=== PATIENT | female | born 1975 | race Two or more races ===

== ENCOUNTER 2016-08-29 21:18 | Emergency (ER) | payer BC, OTHER ==
--- NOTE | ~2016-08-29 | CR63 ---
[facility] A Service of [facility] & [facility] RADIOLOGY TEXT RESULTS PATIENT: ISRAEL HALEY LOCATION: [facility] : 71 UNIT #: [id number] AGE: [address]: Oscar Lovell MD SEX: F ORDER DR: [id number] [facility] [address] [place], [place] [address] [id number] E MR#: [id number] Acc #: [id number] NAME: ISRAEL HALEY : 1975 SEX: F STUDY DATE/TIME: 08/29/2016 21:18 UNIT: [facility] ROOM: STUDY DESCRIPTION: CR Chest 2 View Attending Physician: Oscar Lovell M.D. Ordering Physician: Jesus Mclaughlin M.D. MEDICAL IMAGING REPORT This report is preliminary unless electronic signature is present EXAM PA and lateral chest HISTORY Chest pain and shortness of air for 6 days. FINDINGS PA and lateral examination of the chest upright shows a good expansion of the parenchyma with a normal distribution of the pulmonary vascularity. There is no indication of congestion, effusion, infiltrate, tumor, or nodular density. The pleural reflections and diaphragmatic contours are normal. The cardiac silhouette and mediastinal anatomy is within normal limits. IMPRESSION Normal chest. Dictated by... Aashish Israel M.D. THIS IS AN ELECTRONICALLY VERIFIED REPORT Aashish Israel M.D. at 08/30/2016 10:57 PM DFL/psc TD: 08/30/2016 01:40 JOB #: [id number] MEDICAL IMAGING REPORT Page 1 of 1 COPY
--- NOTE | ~2016-08-29 | EKG ---
PATIENT: ISRAEL HALEY UNIT #: [id number] Ventricular Rate: 85 BPM Atrial Rate: 85 BPM P-R Interval: 138 ms QRS Duration: 84 ms Q-T Interval: 362 ms QTC Calculation(Bezet): 430 ms P [place]: 44 degrees Calculated R [place]: -2 degrees Calculated T [place]: 8 degrees Diagnosis Line: Normal sinus rhythm Diagnosis Line: Moderate voltage criteria for LVH, may be normal Diagnosis Line: variant Diagnosis Line: Borderline ECG Diagnosis Line: Diagnosis Line: Confirmed by MIGUEL ÁNGEL RODRIGES MD ([id number]) on 08/29/2016 Diagnosis Line: 11:43:17 PM INTERPRETING MD: ANTELMO DEVINE
[2016-08-29 18:49] LABS: BASOPHIL% 0.4 % (0-2.5); EOSINOPHIL# 0.1 X10e3 (0-0.7); EOSINOPHIL% 1.4 % (0.0-7.0); HEMATOCRIT 41.5 % (35.0-45.0); HEMOGLOBIN 13.4 gm/dL (12.0-16.0); LYMPHOCYTE# 2.1 X10e3 (1.0-3.5); LYMPHOCYTE% 26.9 % (17.0-45.0); MEAN CELL VOLUME 78.6 FL (83-96); MEAN CORPUSCULAR HEMOGLOBIN 25.4 PG (28-34); MEAN CORPUSCULAR HGB CONC 32.4 g/dL (30-36); MEAN PLATELET VOLUME 8.4 FL (6.5-11.5); MONOCYTE# 0.7 X10e3 (0-1.0); MONOCYTE% 8.4 % (3.0-12.0); NEUTROPHIL% 62.9 % (40-75); PLATELET COUNT 251 X10e3 (140-420); RED BLOOD COUNT 5.28 X10e (3.90-5.30); RED CELL DISTRIBUTION WIDTH 13.5 % (11.0-15.5)
[2016-08-29 18:50] LABS: DIFF IND NO
[2016-08-29 19:11] LABS: ALBUMIN SERUM 4.3 g/dL (3.5-5.0); ALKALINE PHOSPHATASE 90 U/L (32-92); ALT (SGPT) 39 U/L (10-40); AST (SGOT) 22 U/L (10-42); BILIRUBIN,TOTAL 0.8 mg/dL (0.2-2.0); BLOOD UREA NITROGEN 16 mg/dL (9-23); CALCIUM SERUM 9.5 mg/dL (8.4-10.2); CARBON DIOXIDE 27 mmol/L (22-31); CHLORIDE 104 mmol/L (100-111); CREATININE SERUM 0.8 mg/dL (0.6-1.4); GLUCOSE FASTING 95 mg/dL (70-110); PROTEIN TOTAL SERUM 8.1 g/dL (6.0-8.3); SODIUM 140 mmol/L (135-145)
[2016-08-29 19:12] LABS: BILIRUBIN, DIRECT <0.1 mg/dL (0.0-0.2); BILIRUBIN,INDIRECT 0.7 mg/dL (0.0-0.9)
[2016-08-29 20:48] LABS: POC - CKMB <1.0 ng/mL (0.0-7.9); POC - TROPONIN <0.05 ng/mL (<=0.05)
[2016-08-29 22:49] LABS: POC - CKMB <1.0 ng/mL (0.0-7.9); POC - TROPONIN <0.05 ng/mL (<=0.05)
== END 2016-08-29 23:57 | disposition home or self-care (01) ==
LOC: CED 21:18
PROVIDERS: Emergency Medicine
DX: R07.89 Other chest pain (principal); R00.2 Palpitations; R10.12 Left upper quadrant pain; E07.9 Disorder of thyroid, unspecified
CPT/HCPCS: 36415; 71020; 80048; 80076; 82553; 83690; 84443; 84484; 85025; 93005; 99284